=== PATIENT | female | born 1945 ===

== ENCOUNTER 2017-08-30 07:10 | Emergency (ER) | payer OTHER ==
[2017-08-30 07:10] VITALS: BMI 30.4
[2017-08-30 07:25] VITALS: O2SAT 98
--- NOTE | 2017-08-30 08:06 | C.PDOC ---
History Of Present Illness 72 y/o female, w/PMhx of diabetes, HTN, and hypothyroidism, presents to the ER reports that she has constipation for 1 week. Patient states that she has small stool pass but her last bm was 1 week ago . Patient notes that she has associated bloating and gas. She reports that she also has pain to the right side of the neck for several days and the pain radiates down her right arm. Denies having any trauma, nausea, vomiting, dysuria, GI bleed, back pain, fever , and recent travel. Time Seen by Provider: 08/30/17 07:30 Chief Complaint (Nursing): Abdominal Pain History Per: Patient History/Exam Limitations: no limitations Onset/Duration Of Symptoms: Days Current Symptoms Are (Timing): Still Present Severity: Moderate Past Medical History Reviewed: Historical Data, Nursing Documentation, Vital Signs Vital Signs: Last Vital Signs Temp 98 F 08/30/17 07:20 Pulse 89 08/30/17 07:20 Resp 16 08/30/17 07:20 BP 109/74 08/30/17 07:20 Pulse Ox 98 08/30/17 08:23 - Medical History PMH: Diabetes, HTN, Hypercholesterolemia, Hypothyroidism Denies: Chronic Kidney Disease Surgical History: Cholecystectomy - [facility] Procedures FLUOROSCOPY OF LEFT HEART USING LOW OSMOLAR CONTRAST (09/28/15) FLUOROSCOPY OF MULT COR ART USING L OSM CONTRAST (09/28/15) MEASURE OF CARDIAC SAMPL & PRESSURE, L HEART, PERC APPROACH (09/28/15) Family History: States: No Known Family Hx - Social History Hx Tobacco Use: No Hx Alcohol Use: No Hx Substance Use: No - Immunization History Hx Tetanus Toxoid Vaccination: No Hx Influenza Vaccination: No Hx Pneumococcal Vaccination: No Review Of Systems Except As Marked, All Systems Reviewed And Found Negative. Constitutional: Negative for: Fever, Chills Gastrointestinal: Positive for: Constipation. Negative for: Nausea, Vomiting Genitourinary: Negative for: Dysuria Musculoskeletal: Positive for: Neck Pain. Negative for: Back Pain Physical Exam - Physical Exam Appears: Non-toxic, No Acute Distress Skin: Normal Color, Warm, Dry Head: Atraumatic, Normacephalic Eye(s): bilateral: Normal Inspection Nose: Normal Oral Mucosa: Moist Neck: Other (muscle spasm to right sided paracervical region) Chest: Symmetrical Cardiovascular: Rhythm Regular Respiratory: Normal Breath Sounds, No Rales, No Rhonchi, No Wheezing Gastrointestinal/Abdominal: Normal Exam, Bowel Sounds (active bowel sounds), Soft, No Tenderness, No Guarding, No Rebound Extremity: Normal ROM Neurological/Psych: Oriented x3, Normal Speech ED Course And Treatment O2 Sat by Pulse Oximetry: 98 (RA) Pulse Ox Interpretation: Normal Medical Decision Making Medical Decision Making: Plan: --UA --Urine Culture --Flexeril PO --Toradol IM On re-exam, the patient reports improvement of symptoms. Lungs are CTA, heart is RRR, Abdomen is soft, non-tender and the patient is tolerating PO well. Ambulatory in the ED with steady gait. Follow up with the medical doctor/clinic within 1-2 days without fail. Return if worsened. Disposition - Disposition Referrals: Ivy Rodriguez MD [Medical Doctor] - Disposition: HOME/ ROUTINE Disposition Time: 09:11 Condition: STABLE Additional Instructions: Follow up with the medical doctor/clinic within 1-2 days without fail. Return if worsened. Prescriptions: Cyclobenzaprine [Flexeril] 5 mg PO TID #21 tab Naproxen 375 mg PO BID #20 tablet Polyethylene Glycol 3350 [Miralax] 17 gm PO DAILY PRN #200 ml PRN Reason: Constipation Instructions: Constipation, Adult (DC), High Fiber Diet, Radiculopathy (DC) Forms: View and Chew (Guinean) Print Language: SENEGALESE - POA Present On Arrival: None - Clinical Impression Clinical Impression: Cervical radiculopathy, Constipation - PA / INSTRUCTOR [employer]ING / Resident Statement MD/DO has reviewed & agrees with the documentation as recorded. - Scribe Statement The provider has reviewed the documentation as recorded by the Rosi Mccarthy Provider Attestation All medical record entries made by the Rosi were at my direction and personally dictated by me. I have reviewed the chart and agree that the record accurately reflects my personal performance of the history, physical exam, medical decision making, and the department course for this patient. I have also personally directed, reviewed, and agree with the discharge instructions and disposition.
[2017-08-30 08:44] LABS: SQUAMOUS EPITHIAL 4 /hpf (0-5); URINE BILIRUBIN NEGATIVE (NEGATIVE); URINE BLOOD NEGATIVE (NEGATIVE); URINE CLARITY Hazy (Clear); URINE COLOR Yellow (YELLOW); URINE GLUCOSE (UA) NORMAL (Normal); URINE LEUKOCYTE ESTERASE TRACE Leu/uL (Negative); URINE PROTEIN NEGATIVE (NEGATIVE); URINE UROBILINOGEN NORMAL mg/dL (0.2-1.0)
[2017-08-30 09:28] VITALS: BP 110/70; PULSE 65; RESP 18; TEMP 98.8
== END 2017-08-30 09:49 | disposition home or self-care (01) ==
LOC: C.ER 07:10
DX: K59.00 Constipation, unspecified (principal); M54.12 Radiculopathy, cervical region; E11.9 Type 2 diabetes mellitus without complications; I10 Essential (primary) hypertension; E78.00 Pure hypercholesterolemia, unspecified; E03.9 Hypothyroidism, unspecified
CPT/HCPCS: 81001; 87086; 96372; 99285; J1885